=== PATIENT | female | born 1985 | race African-American/Black ===

== ENCOUNTER 2020-11-09 04:48 | Emergency (ER) | payer BC ==
[2020-11-09 05:15] VITALS: BP 115/72; PULSE 67; BMI 33.6
[2020-11-09] MEDS ORDERED: IBUPROFEN 600 MG TABLET (FP) PO ONE ×2 (05:55→06:00)
[2020-11-09] MEDS ORDERED: ACETAMINOPHEN 500 MG TABLET (FP) PO ONE (07:42)
[2020-11-09] MEDS ORDERED: ACETAMINOPHEN 325 MG TABLET (FP) ONE (08:27)
== END 2020-11-09 08:34 | disposition home or self-care (01) ==
LOC: JER 04:48
DX: M94.0 Chondrocostal junction syndrome [Tietze] (principal)
CPT/HCPCS: 71046-TC-FY; 82962; 93005; 93010; 99285-25

== ENCOUNTER 2020-11-10 04:06 | Emergency (ER) | payer BC ==
[2020-11-10 04:37] VITALS: BP 128/76; PULSE 71; TEMP 98.4; BMI 33.6
[2020-11-10] MEDS ORDERED: ACETAMINOPHEN 325 MG TABLET (FP) PO ONE (04:38)
[2020-11-10] MEDS ORDERED: ACETAMINOPHEN 325 MG TABLET (FP) ONE (04:54)
[2020-11-10 05:22] LABS: HEMATOCRIT 35.3 % (32.4-45.2)
[2020-11-10 05:41] LABS: POTASSIUM 3.8 mmol/L (3.5-5.1)
[2020-11-10 05:42] LABS: CALCIUM 8.5 mg/dL (8.5-10.1)
[2020-11-10 05:43] LABS: ALBUMIN 3.5 g/dl (3.4-5.0); BLOOD UREA NITROGEN 7.2 mg/dL (7-18)
[2020-11-10 05:46] LABS: CREATININE 0.8 mg/dL (0.55-1.3)
[2020-11-10 05:47] LABS: BILIRUBIN,TOTAL 0.5 mg/dL (0.2-1)
[2020-11-10 06:02] LABS: PH,URINE 5.5 (5.0-8.0); URINE APPEARANCE CLEAR; URINE BILIRUBIN NEGATIVE (NEGATIVE); URINE COLOR YELLOW; URINE GLUCOSE (UA) NEGATIVE (NEGATIVE); URINE KETONE NEGATIVE (NEGATIVE); URINE LEUK ESTERASE NEGATIVE (NEGATIVE); URINE NITRITE NEGATIVE (NEGATIVE); URINE PROTEIN NEGATIVE (NEGATIVE); URINE UROBILINOGEN 0.2 mg/dL (0.2-1.0)
[2020-11-10 08:27] LABS: BASO % 0.2 % (0-2.0); EOS % 1.3 % (0-4.5); HEMOGLOBIN 11.8 GM/dL (10.7-15.3); LYMPH % 28.4 % (8-40); MCH 31.9 pg (25.7-33.7); MCHC 33.5 g/dl (32.0-36.0); MEAN CELL VOLUME 95.1 fl (80-96); MEAN PLT VOLUME 10.7 fl (7.5-11.1); MONO % 9.3 % (3.8-10.2); NEUT % 60.8 % (42.8-82.8); PLATELET COUNT 196 K/MM3 (134-434); RBC 3.71 M/mm3 (3.60-5.2); RDW 13.6 % (11.6-15.6); WHITE BLOOD COUNT 6.1 K/mm3 (4.0-10.0)
== END 2020-11-10 06:44 | disposition home or self-care (01) ==
LOC: JER 04:06
DX: R53.83 Other fatigue (principal)
CPT/HCPCS: 36415; 80053; 81003; 84703; 85025; 87086; 99283-25